=== PATIENT | male | born 1970 | race Caucasian/White ===

== ENCOUNTER 2018-07-16 08:26 | Outpatient (CLI) | payer OTHER, SELFPAY | END 2018-07-16 08:46 | PROVIDERS: PCP Nurse Practitioner Family; Visit Provider Orthopaedic Surgery | DX: M25.562 Pain in left knee (principal); M23.92 Unspecified internal derangement of left knee; Z01.818 Encounter for other preprocedural examination ==

== ENCOUNTER 2018-07-20 06:06 | Day surgery (SDC) | payer OTHER, SELFPAY ==
[2018-07-20] VITALS (7 sets, daily range): BP systolic 101–131; BP diastolic 57–83; PULSE 56–68; RESP 12–18; TEMP 34.9–36.5; O2SAT 95–99
[2018-07-20] MEDS: Lactated Ringers 1,000 ML 80 ML IV (06:46)
--- NOTE | 2018-07-20 08:40 | W.PM.DSUDISC ---
Discharge Plan Disposition Patient Disposition: HOME Condition: Good Discharge Details Reason For Visit: arthroscopy [facility] Attending Provider: Rodo Hess Primary Care Provider: Alma Delia Thurman Home Meds and New Rx's Prescriptions: New hydrocodone-acetaminophen 5-325 mg tablet 1 tab PO Q6H PRN (Reason: pain) Qty: 14 RF: 0 ibuprofen 800 mg tablet 800 mg PO TID Qty: 30 RF: 0 Continued ibuprofen 200 mg Tablet 800 mg PO PRN PRNRF: 0 zinc 50 mg Tablet 50 mg PO DAILY RF: 0 Discharge Instructions Additional Instructions: Elevate L leg on 1-2 pillows as much as possible for next 48 hours. Apply cryocuff to L knee continuously overnite. Tomorrow, start to use 4 times/day for 1 hour each time. Crutches to walk. Put as much weight on L leg as your pain allows. Discontinue crutches when you can step on L leg with minimal pain. May remove dressings, shower and get incisions wet after 48 hours. Leave incisions uncovered when they are dry and sealed. Take ibuprofen 3 times/day for 10 days for inflammation and swelling. Take hydrocodone for breakthru pain as needed. Follow up in office in 2 weeks. Outpatient physical therapy to rehab L knee post-arthroscopy, later this week. Stand Alone Forms: [facility] Post op Instructions, Radha Shirley ([facility]) Referrals: Rodo Hess MD [ [facility] STAFF PHYSICIAN] - (f/u in 2 weeks.) Equipment/Supplies: Partial Weight Bearing Crutches Activity:: Activity as Tolerated Remove Dressings/Wound Care:: 48 hours Shower/Bathe:: 48 hours Diet:: As Tolerated Discharge Orders Discharge Orders: Discharge Order (Routine); Ordered 07/20/18 Ordered By: Rodo Hess DS: Diagnosis Discharge Diagnosis (1) Internal derangement of left knee: Status: Acute
--- NOTE | 2018-07-27 08:21 | ROE_ITS ---
REPORT OF OPERATIVE PROCEDURE DATE OF SERVICE July 20, 2018 PREOPERATIVE DIAGNOSIS Internal derangement left knee. POSTOPERATIVE DIAGNOSIS Internal derangement left knee. PROCEDURE Arthroscopy left knee with limited chondroplasty medial femoral condyle and patella. ANESTHESIA General, Markus Heck M.D. SURGEON Rodo Hess M.D. INDICATIONS This is a 47-year-old white male who [place] in August of 2017. He fell and landed on his flexed left knee. He has continued to have pain and swelling in his left knee since th at time. This has not responded to conservative treatment including injection and oral antiinflammato ry medications. MRI scan was obtained, which was nondiagnostic. There appeared to be increased signal in the posterior horn of the medial meniscus suggestive of a tear. Because of the inability to obtai n an accurate diagnosis with MRI and because of the failure for his symptoms to improve with conserva tive treatment, arthroscopy was recommended. The arthroscopy will provide an accurate diagnosis, and be a basis for further treatment. The risks and complications of the procedure were explained to the patient in detail preop. PROCEDURE The patient was taken to the Operating Room on 07/20/2018. He was placed supine on the operating tabl e and a general anesthetic was administered. The left knee thigh was placed in the arthroscopic leg holcomb and then the left knee was prepped and draped free in the usual sterile fashion. Arthroscopic portals were established. The left knee was inflated with normal saline solution using the arthroscopy pump and then routine arthroscopic examination proceeded. Intraoperative photographs to document findings. Upon entering the medial compartment, there was noted to be some grade II chondromalacia of the poste rior portion of the medial femoral condyle. The medial meniscus appeared intact. I made an anteromedi al portal and inserted a right angle probe. The medial meniscus was probed vigorously under direct vi hiram. No occult tear of the meniscus could be visualized. Meniscal attachments were intact. I then in troduced a 90-degree high radiofrequency electrocautery wand and debrided all loose articular cartila ge from the medial femoral condyle. The intracondylar notch showed intact anterior and posterior cruciate ligaments. The lateral compartment showed normal articular cartilage in the lateral compartment. The lateral me niscus was undamaged and intact and was stable to probing under direct vision. The popliteus tendon w as normal. The medial and lateral gutters were clear. The suprapatellar pouch was clear. 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 There was no significant chondromalacia of the trochlear or the femur noted. Using high rate radiofrequenc y electrocautery wand, I debrided loose articular cartilage from the surface of the patella until the re was just stable articular cartilage remaining. The knee was then copiously irrigated with saline s olution using the arthroscopy pump until the outflow was clear. All instruments were removed from the knee. 20 cc of 0.5% Marcaine with Epinephrine solution, along with 4 mg of morphine were instilled i nto the knee. The arthroscopy portals were infiltrated with 0.5% Marcaine with epinephrine solution. The arthroscopy portals were approximated with interrupted #4-0 Nylon sutures. Sterile dressings were applied. Xeroform gauze, sterile gauze, 4x4s, ABD pad, and wrapped with a 6-inch Michael bandage for a light pressure dressing. The patient's anesthesia was reversed without complication. Blood loss was minimal. He was discharged to Recovery Room in good condition. The patient was later discharged home for the Day Surgery Unit when fully recovered from his general anesthesia. He was given instructions to elevate his left leg on 1 to 2 pillows as much as possible f or the next 48 hours. He is to use crutches to walk, weightbearing as tolerated to the left leg. He may discontinue the crutches as soon as he can step fully on the left leg with minimal pain. He may remove his dressings, shower and get his incisions wet after 48 hours. He can keep the incisions unco carlos alberto once they are dry and sealed. He is given a prescription for inflammation of ibuprofen 800 mg p .o. t.i.d. for 10 days. He is given a prescription for breakthrough pain of hydrocodone with APAP 5/3 25 1 tablet every 6 hours if needed for breakthrough pain. He will begin outpatient physical therapy to rehab his left knee within 48 to 72 hours postop. He will followup in Dr. Hess's office in [facility].
== END 2018-07-20 10:27 | disposition home or self-care (01) ==
PROVIDERS: PCP Nurse Practitioner Family; Visit Provider Orthopaedic Surgery
PROC: (CPT 29870; principal; 2018-07-20 07:30)
DX: S89.82XA Other specified injuries of left lower leg, initial encounter (principal); W19.XXXA Unspecified fall, initial encounter; Y99.0 Civilian activity done for income or pay; M22.42 Chondromalacia patellae, left knee
CPT/HCPCS: 29877; E0114; J0690; J1100; J1885; J2250; J2405; J3010

== ENCOUNTER 2018-11-18 09:25 | Outpatient (CLI) | payer OTHER, SELFPAY ==
--- NOTE | 2018-11-18 09:09 | DI.RAD_ITS ---
SYMPTOM/DIAGNOSIS: PAIN LEFT KNEE: Three views. There is mild narrowing and periarticular spurring in the medial femoral tibial joint space. Mild spurring is seen of the posterior patella. No acute fracture or dislocation is seen. There is soft tissue swelling in the prepatellar space. IMPRESSION: Prepatellar soft tissue swelling. Mild degenerative changes of the left knee.
== END 2018-11-18 09:45 ==
PROVIDERS: PCP Nurse Practitioner Family; Visit Provider Orthopaedic Surgery
DX: M25.562 Pain in left knee (principal); M79.89 Other specified soft tissue disorders; M17.12 Unilateral primary osteoarthritis, left knee
CPT/HCPCS: 73562